=== PATIENT | male | born 1955 | race Caucasian/White ===

== ENCOUNTER 2019-11-29 08:15 | Inpatient (IN) | payer OTHER ==
--- NOTE | 2019-11-29 08:41 | RAD ---
Portable chest: HISTORY: Chest pain COMPARISON: none FINDINGS: Lung mina are clear. Heart and mediastinum appear unremarkable. Vascularity is normal. Visualized osseous structures unremarkable. IMPRESSION: No acute finding
[2019-11-29 08:59] LABS: #Eosinphils 0.1 thou/uL (0.0-0.7); #Lymphocytes 1.1 thou/uL (1.20-3.40); #Monocytes 0.6 thou/uL (0.11-0.59); #Neutrophils 5.6 thou/uL (1.40-6.50); %Basophils 0.3 % (0.0-1.0); %Eosinophils 1.8 % (0.0-10.0); %Lymphocytes 14.5 % (21.0-51.0); %Monocytes 7.5 % (0.0-10.0); %Neutrophils 75.9 % (42.0-75.0); Hemoglobin 18.2 g/dL (14.0-18.0); Mean Corpuscular Hemoglobin 34.4 pg (27.0-31.0); Mean Platelet Volume 8.9 fL (7.4-10.4); Platelet Count 181 thou/uL (130-400); RBC Distribution Width 11.9 % (11.5-14.5); White Blood Cell (WBC) Count 7.4 thou/uL (4.8-10.8)
[2019-11-29] MEDS ORDERED: Aspirin Chewable 81 MG TAB ONE (08:59)
[2019-11-29] MEDS ORDERED: Aspirin 325 MG TAB PO SCH (09:00)
[2019-11-29 09:21] LABS: ALT (SGPT) 54 U/L (8-55); AST (SGOT) 60 U/L (5-34); Albumin 4.4 g/dL (3.4-4.8); Alkaline Phosphatase 96 U/L (40-110); Anion Gap 16 mmol/L (10-20); BUN (Urea Nitrogen) 9 mg/dL (8.4-25.7); Bilirubin, Total 0.7 mg/dL (0.2-1.2); Calc. Creatinine Clearance 0 mL/min (70-130); Calcium 9.8 mg/dL (7.8-10.44); Carbon Dioxide 26 mmol/L (23-31); Chloride 100 mmol/L (98-107); Estimated GFR-MDRD 83; Globulin 3.6 g/dL (2.4-3.5); Glucose 209 mg/dL (80-115); Potassium 3.9 mmol/L (3.5-5.1); Sodium 138 mmol/L (136-145)
--- NOTE | 2019-11-29 10:25 | PDOC.HHP ---
Hospitalist HPI - History of Present Illness Chest pain History of Present Illness: This a 64-year-old male patient with a history of hypertension, smoker who presents with chest pain for about 45 minutes duration. Patient notes that a day ago he had smoked a little more than usual, had a few more drinks and food and went to bed. He notes he has been having job-related stresses for the past week. He has a sedentary life style but no recent long distant travel. He denies any recent sore throat or flu-like symptoms. He woke up this morning sweaty with central chest pain. Pain was localized, 8/10 in intensity nonradiating. He noted worsening of the pain with walking and field a bit lightheaded. SVT was noted by EMS. He was brought in by air ambulance. SVT spontaneously converted prior to landing along with the chest pain Patient notes having had a similar episode about a month ago but however did not follow-up for checkup on that. Patient denies any associated wheezing, cough or shortness of breath. He notes having had a stress test about 2 years ago when he was being managed for hypertension by his previous PCP. He has a family history of coronary disease in his father and cousins. At presentation His blood pressure was 133/91, pulse 99, oxygen 97 on room air. Troponin was 0.021, BNP 10.1 chest x-ray showed no acute events, EKG showed normal sinus rhythm with PVCs, right bundle branch block with left anterior fascicular block. Glucose was elevated at 209, hemoglobin increased at 18.2 with MCV 104, he was given aspirin 324 mg. Hospitalist team was consulted for admission Hospitalist ROS - Review of Systems Constitutional: denies: fever, chills, sweats Respiratory: reports: cough, dry. denies: shortness of breath, hemoptysis, SOB with excertion Cardiovascular: reports: chest pain, palpitations. denies: orthopnea, paroxysmal noc. dyspnea Genitourinary: denies: dysuria, frequency, incontinence Neurological: denies: weakness, numbness, incoordination, change in speech - Medication Medications: Not on any chronic medications. Allergies: Sulfa drugs, penicillin, codeine Hospitalist History - Past Medical History Cardiac: reports: HTN - Past Surgical History Other Surgical History: Right knee surgery - Family History Other Family History: Coronary disease, atrial fibrillation - Social History Smoking Status: Current every day smoker Alcohol: reports: Heavy Living Situation: Alone - Exam General Appearance: awake alert General - other findings: Morbidly obese Eye: PERRL, anicteric sclera ENT: normocephalic atraumatic, no oropharyngeal lesions Heart: RRR, no murmur, no gallops, normal peripheral pulses Respiratory: no wheezes, no rales, no ronchi, no tachypnea Gastrointestinal: soft, non-tender, non-distended, normal bowel sounds Extremities: no cyanosis, no edema Extremities - other findings: Has varicose veins, trace edema bilaterally. Neurological: cranial nerve grossly intact, normal sensation to touch, no focal deficits Psychiatric: A&O x 3 Hospitalist Results - Labs Result Diagrams: 11/29/19 21:57 11/29/19 08:46 Lab results: WBC 7.4 thou/uL (4.8-10.8) 11/29/19 08:46 Hgb 18.2 g/dL (14.0-18.0) H 11/29/19 08:46 Hct 55.2 % (42.0-52.0) H 11/29/19 08:46 MCV 104.0 fL (78.0-98.0) H 11/29/19 08:46 Plt Count 181 thou/uL (130-400) 11/29/19 08:46 Neutrophils % 75.9 % (42.0-75.0) H 11/29/19 08:46 Sodium 138 mmol/L (136-145) 11/29/19 08:46 Potassium 3.9 mmol/L (3.5-5.1) 11/29/19 08:46 Chloride 100 mmol/L (98-107) 11/29/19 08:46 Carbon Dioxide 26 mmol/L (23-31) 11/29/19 08:46 BUN 9 mg/dL (8.4-25.7) 11/29/19 08:46 Creatinine 0.92 mg/dL (0.7-1.3) 11/29/19 08:46 Glucose 209 mg/dL (80-115) H 11/29/19 08:46 Calcium 9.8 mg/dL (7.8-10.44) 11/29/19 08:46 Total Bilirubin 0.7 mg/dL (0.2-1.2) 11/29/19 08:46 AST 60 U/L (5-34) H 11/29/19 08:46 ALT 54 U/L (8-55) 11/29/19 08:46 Alkaline Phosphatase 96 U/L (40-110) 11/29/19 08:46 Troponin I 0.021 ng/mL (< 0.028) 11/29/19 08:46 B-Natriuretic Peptide 10.1 pg/mL (0-100) 11/29/19 08:46 Serum Total Protein 8.0 g/dL (5.8-8.1) 11/29/19 08:46 Albumin 4.4 g/dL (3.4-4.8) 11/29/19 08:46 Hospitalist H&P A/P - Plan Plan: This is a 64-year-old male patient with a history of hypertension presenting today with chest pain. Chest pain Carotid artery disease versus GERD No elevation in troponin, no concerning EKG changes at the moment. We will order a stress test this morning Admit to obs telemetry Echocardiogram Cardiology consult if stress test abnormal. Intermittent palpitations Also had SVTpossibly A. fib Added TSH Continue monitoring. Uncontrolled hypertension Start amlodipine PRN labetalol/hydralazine monitor SVT AVNRT possible A. fib Noted on EMS notes with palpitations this morning. We will check TSH monitor on tele Bifascicular block Noted on EKG Consult cardiology Tobacco abuse Counseled on smoke cessation Obesity VT prophylaxisSCDs Addendum 8pm: Patients troponin was noted to be on the rise but had no chest pain Started heparin. await cardio inpur in am
[2019-11-29] MEDS ORDERED: Acetaminophen 325 MG TAB PO PRN (10:34)
[2019-11-29] MEDS ORDERED: hydrALAZINE 20 MG/ML VIAL SLOW IVP PRN (10:59)
[2019-11-29] MEDS ORDERED: Labetalol HCl 100 MG/20 ML VIAL SLOW IVP PRN (11:22)
[2019-11-29] MEDS ORDERED: Amlodipine 5 MG TAB ONE (11:24)
[2019-11-29 11:36] LABS: Cardiac Risk 5.5 (Less than 4.5)
[2019-11-29 11:45] LABS: Hemoglobin A1c 7.3 % (4.0-6.0)
[2019-11-29 11:50] LABS: Troponin I 0.037 ng/mL (< 0.028)
[2019-11-29] MEDS: Amlodipine 10 MG TAB PO SCH (13:02)
[2019-11-29 13:13] VITALS: BMI 41.3
[2019-11-29 19:12] LABS: SARS-CoV-2 MS2 Positive; SARS-CoV-2 N Gene Negative; SARS-CoV-2 S Gene Negative; SARS-CoV-2 by NAA Not Detected (NotDetected); SARS-CoV-2 orf1ab Negative
[2019-11-29] MEDS ORDERED: Heparin 25,000 units/D5W 500 ML IVPB SCH (20:15)
[2019-11-29 20:34] LABS: Hemoglobin 17.2 g/dL (14.0-18.0); Platelet Count 199 thou/uL (130-400)
[2019-11-29 22:06] LABS: Platelet Count 195 thou/uL (130-400)
[2019-11-29] MEDS: Heparin 10,000 UNITS/ 10 ML VIAL SLOW IVP SCH (22:21)
[2019-11-29] MEDS: Atorvastatin Calcium 40 MG TAB PO SCH (22:22)
[2019-11-30 01:55] LABS: Troponin I 0.067 ng/mL (< 0.028)
[2019-11-30] MEDS ORDERED: Nitroglycerin 0.4 MG TAB (25 Tab Bottle) SL PRN (03:27)
[2019-11-30 04:14] LABS: Anion Gap 13 mmol/L (10-20); BUN (Urea Nitrogen) 12 mg/dL (8.4-25.7); Calc. Creatinine Clearance 185 mL/min (70-130); Calcium 9.4 mg/dL (7.8-10.44); Carbon Dioxide 27 mmol/L (23-31); Chloride 99 mmol/L (98-107); Estimated GFR-MDRD Greater than 90; Glucose 142 mg/dL (80-115); Potassium 3.9 mmol/L (3.5-5.1); Sodium 135 mmol/L (136-145)
[2019-11-30 04:19] LABS: Troponin I 0.065 ng/mL (< 0.028)
[2019-11-30 04:28] LABS: Band 4 % (5-11); Eosinophils 1 % (0-10); Hemoglobin 17.2 g/dL (14.0-18.0); Lymphocytes 32 % (21-51); MDiff Complete? YES; Mean Corpuscular HGB CONC 32.6 g/dL (32.0-36.0); Mean Corpuscular Hemoglobin 33.9 pg (27.0-31.0); Mean Platelet Volume 8.7 fL (7.4-10.4); Monocytes 13 % (0-10); Neutrophil 50 % (42-75); Platelet Count 190 thou/uL (130-400); Red Blood Cell (RBC) Count 5.08 mill/uL (4.70-6.10); White Blood Cell (WBC) Count 8.7 thou/uL (4.8-10.8)
[2019-11-30 05:32] LABS: Troponin I 0.051 ng/mL (< 0.028)
[2019-11-30] MEDS: Heparin 10,000 UNITS/ 10 ML VIAL SLOW IVP SCH (05:43)
[2019-11-30] MEDS ORDERED: Regadenoson 0.4 MG/5 ML SYRINGE ONE (08:32)
[2019-11-30] MEDS ORDERED: Enoxaparin Sodium 40 MG/0.4 ML SYRINGE SC SCH ×2 (09:00→21:00)
[2019-11-30] MEDS: Aspirin 81 mg Enteric Coated Tablet PO SCH (09:27)
[2019-11-30] MEDS: Amlodipine 10 MG TAB PO SCH (09:27)
--- NOTE | 2019-11-30 11:57 | PDOC.HOSPP ---
- Subjective Encounter Date: 11/30/19 Encounter Time: 11:54 Subjective: Patient was seen and examined in bed. Overnight his troponins climbed up a bit as well started on heparin drip He noted having some epigastric pain after eating however that has resolved. He denies any chest pain or shortness of breath. - Objective Vital Signs & Weight: Vital Signs (12 hours) Temp Pulse Resp BP BP Pulse Ox 11/30/19 11:46 98.2 F 73 16 134/63 97 11/30/19 08:01 97 11/30/19 07:36 98.3 F 65 16 144/70 H 96 11/30/19 04:58 97 11/30/19 03:52 98.1 F 69 18 109/53 L 97 Weight Weight 313 lb Result Diagrams: 11/30/19 03:47 11/30/19 03:47 Additional Labs: Accuchecks 11/30/19 11/30/19 11/29/19 10:56 05:27 21:02 POC Glucose 150 H 149 H 179 H EKG Reviewed by me: Yes (No A. fib, right bundle branch block) Hospitalist ROS - Medication Medications: Active Medications Generic Name Dose Route Start Last Admin Trade Name Freq PRN Reason Stop Dose Admin Amlodipine Besylate 10 mg 11/29/19 11:30 11/30/19 09:27 Amlodipine 10 Mg Tab PO 10 mg DAILY SHO Administration Aspirin 81 mg 11/30/19 09:00 11/30/19 09:27 Aspirin 81 Mg Enteric Coated Tablet PO 81 mg DAILY SHO Administration Atorvastatin Calcium 40 mg 11/29/19 21:00 11/29/19 22:22 Atorvastatin Calcium 40 Mg Tab PO 40 mg HS SHO Administration Heparin Sodium/Dextrose 500 mls @ 0 mls/hr 11/29/19 20:15 11/29/19 22:24 Heparin 25,000 Units/D5w IVPB 500 mls INF SHO Administration Protocol Per Protocol - Exam General Appearance: awake alert General - other findings: Morbidly obese Heart: RRR, no murmur, no gallops, normal peripheral pulses Respiratory: no wheezes, no rales, no ronchi, no tachypnea Gastrointestinal: soft, non-tender, non-distended, normal bowel sounds Extremities: no cyanosis, no clubbing, no edema Neurological: cranial nerve grossly intact, no weakness Psychiatric: A&O x 3 Hosp A/P - Plan This is a 64-year-old male patient with history of diabetes, hypertension, ongoing smoker who was admitted a day ago on account of chest pain and cardiac arrhythmia. Chest pain Concerns for ACS Chest pain is resolved However troponins climbed up yesterday Currently on aspirin and statin Was started on heparin drip overnight Stress test heldawaiting cardiology evaluation. Diabetes mellitus On sliding scalecontinue monitoring. Hypertension Blood pressure fairly well controlled We will continue on amlodipine and as needed labetalol SVT None recorded overnight Has persistent right bundle branch block with left ventricular fascicular block Appreciate cardiology input. Tobacco abuse Counseled on cessation. Morbid obesity VTE prophylaxistherapeutic heparin
[2019-11-30 13:52] LABS: Troponin I 0.048 ng/mL (< 0.028)
--- NOTE | 2019-11-30 15:57 | CON ---
DATE OF CONSULTATION: HISTORY OF PRESENT ILLNESS: The patient is a 64-year-old gentleman, who presented with palpitations and chest discomfort. The patient has no previous known cardiac history. He states he previously underwent a stress test many years ago, which was unremarkable. The patient states about a month ago he had some rapid palpitations. This subsequently spontaneously resolved and he did not seek medical attention. The patient yesterday developed acute onset of palpitations and midsternal chest discomfort. The patient went to local fire station. He was found to be in a very rapid heart rhythm. He was transferred and apparently suddenly went back into a normal rhythm. The patient states his palpitations subsequently resolved. The patient continued to have chest discomfort. He states this lasted for several hours. The patient states the chest pain eventually resolved last evening. He states that it seemed to be better with eating certain foods. The patient denies having any present chest discomfort. The patient does report having dyspnea with exertion. He denies having any PND or orthopnea. The patient denies having any chest discomfort with exertion. The patient has multiple cardiac risk factors including hypertension, tobacco abuse, and a family history of coronary artery disease. MEDICAL HISTORY: Hypertension. PAST SURGICAL HISTORY: Knee surgery and finger surgery. SOCIAL HISTORY: Smokes half pack per day and drinks heavily. MEDICATIONS: None. ALLERGIES: PENICILLIN, SULFA, AND CODEINE. REVIEW OF SYSTEMS: Ten-point system otherwise unremarkable. No history of easy bruising, bleeding, bright red blood per rectum. PHYSICAL EXAMINATION: GENERAL: This is an obese gentleman, in no acute distress. VITAL SIGNS: Blood pressure 144/70. NECK: No jugular venous distention. LUNGS: Clear to auscultation. HEART: Regular rate and rhythm. Normal S1 and S2. No murmurs. ABDOMEN: Distended. EXTREMITIES: Showed no edema. VASCULAR: Radial pulses are 2+. LABORATORY RESULTS: Sodium was 135, potassium 3.9, chloride 99, bicarbonate 27, BUN 12, creatinine 0.82, and glucose 142. Troponin is 0.0675. BNP was 10. White blood cell count is 8.7, hemoglobin 7.2, hematocrit 52.9, and platelets 190. EKG normal sinus rhythm with right bundle-branch block. IMPRESSION: 1. Chest pain. 2. Supraventricular arrhythmia. 3. Hypertension. 4. Hyperglycemia. 5. Tobacco abuse. 6. Ethanol abuse. 7. Morbid obesity. PLAN: This gentleman presents with chest pain and an apparent arrhythmia. The telemetry monitoring of this arrhythmia is not available at this time. From a cardiac standpoint, I would recommend the patient undergo stress test to evaluate possible ischemia. The patient is being treated with Protonix for possible GERD. The patient has been highly advised to discontinue smoking. We will follow this patient with you through his hospitalization. Job ID: [id number] [facility]
--- NOTE | 2019-11-30 16:37 | NM ---
Radionucleotide stress only myocardial perfusion scan with CT attenuation correction and SPECT imagin g Left ventricular wall motion evaluation and ejection fraction HISTORY: Chest pain. FINDINGS: Lexiscan protocol. There is homogeneous uptake of radiotracer throughout the left ventricul ar myocardium. No focal perfusion defect evident. QGS analysis of gated SPECT images shows no focal wall motion abnormalities. Ejection fraction calcul ated at 70%. IMPRESSION : No evidence of ischemia. Normal LVEF.
--- NOTE | 2019-11-30 17:32 | EKG ---
Test Reason : STAT Blood Pressure : / mmHG Vent. Rate : 065 BPM Atrial Rate : 065 BPM P-R Int : 132 ms QRS Dur : 152 ms QT Int : 466 ms P-R-T Axes : 041 030 036 degrees QTc Int : 484 ms Normal sinus rhythm Right bundle branch block Abnormal ECG No previous ECGs available Confirmed by DR. Maggie LONG ([id number]) on 11/30/2019 5:31:51 PM Referred By: GODWIN Confirmed By:DR. Maggie LONG
[2019-11-30 18:24] LABS: Troponin I 0.036 ng/mL (< 0.028)
[2019-11-30] MEDS: Atorvastatin Calcium 40 MG TAB PO SCH (20:14)
[2019-11-30 22:23] LABS: Troponin I 0.034 ng/mL (< 0.028)
[2019-12-01] MEDS: Aspirin 81 mg Enteric Coated Tablet PO SCH (11:06)
--- NOTE | 2019-12-01 11:06 | CON ---
DATE OF CONSULTATION: 12/01/2019 HISTORY OF PRESENT ILLNESS: I am seeing Mr. Cline at our [facility] telemetry floor as initial electrophysiology consultation. His problems are; 1. Newly found paroxysmal atrial fibrillation. 2. Atypical chest pains. a. Negative stress test on 11/30/2019, LVEF 70%. b. 2D echo from 11/30/2019, reveals LVEF 55%, normal left atrial size, mildly enlarged right ventricle. 3. Hypertension, possible diabetes, elevated BMI, hypercholesteremia. 4. Smoking. 5. Right bundle-branch block. ALLERGIES: CODEINE, PENICILLIN, SULFA. MEDICATIONS: At home included none. SUBJECTIVE: Mr. Cline is admitted after an episode of chest tightness sensation. He was air transferred to our hospital, but he was already back in sinus rhythm by the time he was flying over with the airplane. He remained in sinus rhythm since. His chest pains resolved. Dr. Mohamud evaluated the patient and underwent routine workup as noted above. For now, he is feeling good. The initial chest tightness sensation and the diaphoresis have resolved with no recurrence. His episode started on Thursday morning. This lasted less than one day. He had a prior episode like this a couple of weeks ago. He does have some cough, but no flu-like symptom or fevers or chills noted. He denies stroke-like symptoms or bleeding issues. No PND, orthopnea, or lower extremity edema to suggest overload. REVIEW OF SYSTEMS: Rest of 12-point review of systems otherwise unremarkable. OBJECTIVE DATA: VITAL SIGNS: Blood pressure is 139/70, heart rate 65, respirations 18, temperature 97.7 degrees Fahrenheit. GENERAL: Reveals alert and oriented man, in no apparent distress with elevated BMI. Weight is 309 pounds. NECK: Supple. Jugular veins are difficult to visualize, but does not appear distended. CHEST: Coarse. No crackles. HEART: Sounds are regular to rate and rhythm. I do not hear murmur or gallop. PMI is nonpalpable. ABDOMEN: Obese. Bowel sounds positive. Hepatosplenomegaly is not detected. EXTREMITIES: Lower extremities without edema, clubbing, or cyanosis. Pulses are adequate. NEUROLOGIC: The patient is nonfocal. MUSCULOSKELETAL: Without joint swelling or deformities. SKIN: Without rash. PAST MEDICAL HISTORY: Hypertension. SOCIAL HISTORY: The patient smokes half a pack a day. Does report EtOH use daily, and lives alone. FAMILY HISTORY: brother has atrial fibrillation and father had ablations for arrhythmia. DATABASE: EKG is reviewed. Initial EKG reveals atrial fibrillation, right bundle-branch block, ventricular rate of 145 beats per minute. Subsequent EKG from our facility on 11/30/2019, reveals sinus rhythm, right bundle-branch block. LABORATORY DATA: White cell count 7.4, hemoglobin 18.2, platelet count is 195. Sodium 139, potassium 3.9, BUN creatinine is 0.92, glucose is 209. The troponin levels are borderline elevated at 0.048, 0.036, and 0.034. The COVID serology is negative. Chest x-ray shows no acute findings. ASSESSMENT AND PLAN: Mr. Cline is a pleasant 64-year-old man with prior history of hypertension, elevated BMI, smoking, EtOH intake, who has started developing recurrent palpitations. The current episode was associated chest pains and was subsequently admitted with documentation of atrial fibrillation. His cardiac workup so far is negative by stress test and echo. We have discussed the mechanism of atrial fibrillation and treatment options. For now, advised initiation of anticoagulation, he has CHADS-VASc score of 2, hypertension, diabetes. Pros and cons of that are discussed. Also we would consider beta-alice therapy or addition of antiarrhythmic agent with flecainide versus Multaq could be made. We also discussed ablation options and we will see him back in the office for further monitoring for his atrial fibrillation and further treatment options in the next 4 weeks or so. These issues discussed in detail with the patient as well as Dr. Mohamud. Thank you for allowing me to participate in the care of this patient. Job ID: [id number]
[2019-12-01 11:15] VITALS: TEMP 97.8
[2019-12-01 11:38] VITALS: BP 127/60
--- NOTE | 2019-12-01 13:56 | PDOC.HOSPP ---
- Subjective Encounter Date: 12/01/19 Encounter Time: 13:54 Subjective: Mr. Burns was seen today in follow-up of AFIB. He does not have any complaints. - Objective Vital Signs & Weight: Vital Signs (12 hours) Temp Pulse Resp BP BP BP Pulse Ox 12/01/19 11:30 97.8 F 70 16 127/60 96 12/01/19 11:14 97.8 F 68 16 140/73 95 12/01/19 08:21 96 12/01/19 07:47 97.7 F 65 18 139/70 96 12/01/19 04:00 98.3 F 65 15 109/56 L 96 12/01/19 03:29 97.6 F 59 L 16 117/63 95 Weight Weight 309 lb 3 oz I&O: 11/30/19 12/01/19 12/02/19 06:59 06:59 06:59 Intake Total 240 Balance 240 Result Diagrams: 11/30/19 03:47 11/30/19 03:47 Additional Labs: Accuchecks 12/01/19 12/01/19 12/01/19 10:48 05:37 00:02 POC Glucose 146 H 134 H 142 H 11/30/19 17:02 POC Glucose 233 H Hospitalist ROS - Medication Medications: Active Medications Generic Name Dose Route Start Last Admin Trade Name Freq PRN Reason Stop Dose Admin Acetaminophen 650 mg 11/29/19 10:34 11/30/19 20:15 Acetaminophen 325 Mg Tab PO 650 mg Q4H PRN Administration Headache/Fever/Mild Pain (1-3) Atorvastatin Calcium 40 mg 11/29/19 21:00 11/30/19 20:14 Atorvastatin Calcium 40 Mg Tab PO 40 mg HS SHO Administration Metoprolol Succinate 25 mg 11/30/19 21:00 12/01/19 10:55 Metoprolol Succinate Xl 25 Mg Tab PO 25 mg BID SHO Administration Sodium Chloride 10 ml 11/30/19 21:00 12/01/19 09:26 Flush - Normal Saline 10 Ml Syringe IVF 10 ml Q12HR SHO Administration - Exam Eye: PERRL, anicteric sclera Heart: RRR, no murmur, no gallops, no rubs, normal peripheral pulses Respiratory: CTAB, no wheezes, no rales, no ronchi, normal chest expansion, no tachypnea Gastrointestinal: soft, non-tender, non-distended, normal bowel sounds, no palpable masses, no hepatomegaly Extremities: no cyanosis, no edema Hosp A/P (1) Atrial fibrillation Code(s): I48.91 - UNSPECIFIED ATRIAL FIBRILLATION Status: Acute (2) Hypertension Code(s): I10 - ESSENTIAL (PRIMARY) HYPERTENSION Status: Chronic (3) Obesity, morbid, BMI 40.0-49.9 Code(s): E66.01 - MORBID (SEVERE) OBESITY DUE TO EXCESS CALORIES Status: Chronic - Plan * AFIB- his heart rate is controlled * He has been started on Eliquis * Stable for discharge home
[2019-12-01] MEDS ORDERED: Apixaban 5 MG TAB PO SCH (21:00)
--- NOTE | 2019-12-02 04:32 | DIS ---
DATE OF ADMISSION: 11/30/2019 DATE OF DISCHARGE: 12/01/2019 DISCHARGE DISPOSITION: Home. DISCHARGE DIAGNOSES: 1. New-onset atrial fibrillation with rapid ventricular response. 2. Hypertension. 3. Tobacco abuse. 4. Morbid obesity with a BMI of 40. The patient is 6 feet 1 inch, 309 pounds. 5. Dyslipidemia. 6. New-onset diabetes mellitus. DISCHARGE MEDICATIONS: Include, 1. Eliquis 5 mg p.o. b.i.d. 2. Lipitor 40 mg q.h.s. 3. Toprol-XL 25 mg p.o. b.i.d. PROCEDURES DONE DURING THE ADMISSION: The patient had an echocardiogram which demonstrated an ejection fraction of 50% to 55%. There was moderately enlarged right ventricle. The other heart chambers are normal and no significant valvular disease. The patient also had a nuclear stress test in which there was no evidence of any ischemia and the ejection fraction was reported as being normal. CODE STATUS: Full code. ALLERGIES: TO CODEINE, PENICILLIN, AND SULFA. HOSPITAL COURSE: Mr. Cline is a pleasant 64-year-old gentleman, who presented to the hospital after having complaints of chest pain, the feeling like somebody was sitting on his chest. He also noted palpitations and shortness of breath. The patient thought he might be having a heart attack and sought help at the local fire station EMT. They had him flown over to our facility. Prior to being transferred, he was in atrial fibrillation which was caught on rhythm strip, but before he was transferred, he converted spontaneously back to sinus rhythm. He was evaluated by Cardiology during his hospital stay. He initially had an echocardiogram done in which the ejection fraction was normal. A stress test was also obtained to screen for ischemia or cardiac ischemia, this was negative, and the patient was placed on Eliquis as well as metoprolol for rate control. He again had already spontaneously converted to sinus rhythm and has remained in sinus rhythm. Dr. Mohamud asked Dr. Bear to evaluate the patient for the need for any antiarrhythmic. It was felt that he did not need any antiarrhythmic therapy at this time, and since he was already in sinus rhythm, there was no indication for ablation or cardioversion, etc. The patient is to follow up with Dr. Bear in 3-4 weeks to determine if any other treatment modalities are needed. He is also to follow up with Dr. Rodrigues as instructed. The patient was found to have hypertension and diabetes as well as dyslipidemia. During this hospital stay, none of which he was aware of. It is also noted that the patient does not have a primary care physician. He was started on once again metoprolol during this hospital stay and diabetes will be controlled with diet and he will need close outpatient followup which he says he plans to do. He was also counseled on the need for smoking cessation and for moderate alcohol use. He also realizes that his body weight is unhealthy and will work to improve this. The patient was subsequently discharged home on again 12/01/2019. Job ID: [id number]
--- NOTE | 2019-12-03 11:03 | EKG ---
Test Reason : Blood Pressure : / mmHG Vent. Rate : 090 BPM Atrial Rate : 090 BPM P-R Int : 120 ms QRS Dur : 142 ms QT Int : 416 ms P-R-T Axes : 055 -54 021 degrees QTc Int : 508 ms Sinus rhythm with occasional Premature ventricular complexes Possible Left atrial enlargement Right bundle branch block Left anterior fascicular block Bifascicular block Abnormal ECG Confirmed by MOLLY TOSCANO DO ([id number]), fashion editor ALEXANDREA GORDON ([id number]) on 12/03/2019 11:02:38 AM Referred By: Confirmed By:MOLLY TOSCANO DO
== END 2019-12-01 15:55 | disposition home or self-care (01) | DRG 309 ==
LOC: ERS 08:15 → 2SE 09:44 → OBSVTOIN 11-30 15:43 → 2NO 11-30 17:48
PROVIDERS: ADMIT Student in an Organized Health Care Education/Training Program; ATTEND Student in an Organized Health Care Education/Training Program
DX: I48.91 Unspecified atrial fibrillation (principal); Z68.41 Body mass index [BMI] 40.0-44.9, adult; Z20.828 Contact with and (suspected) exposure to other viral communicable diseases; I10 Essential (primary) hypertension; I45.2 Bifascicular block; E11.9 Type 2 diabetes mellitus without complications; F17.210 Nicotine dependence, cigarettes, uncomplicated; K21.9 Gastro-esophageal reflux disease without esophagitis; E78.5 Hyperlipidemia, unspecified; E66.01 Morbid (severe) obesity due to excess calories; F10.10 Alcohol abuse, uncomplicated; Z71.6 Tobacco abuse counseling; Z88.0 Allergy status to penicillin; Z88.2 Allergy status to sulfonamides; Z88.5 Allergy status to narcotic agent; Z98.890 Other specified postprocedural states; Z71.41 Alcohol abuse counseling and surveillance of alcoholic
CPT/HCPCS: 36415; 36416; 71045; 78452; 80048; 80053; 80061; 83036; 83880; 84443; 84484; 85007; 85025; 85027; 85730; 87635; 93005; 93010; 93017; 93306; 94760; A9500; G0378; J1644; J1650; J2785; U0003